=== PATIENT | male | born 1945 | race Caucasian/White ===

== ENCOUNTER 2018-02-28 21:56 | Inpatient (IN) | payer MEDICAID ==
[~2018-02-28] VITALS: Ht 162.6 cm; Wt 61.7 kg
[2018-02-28 23:31] LABS: UA SPECIFIC GRAVITY 1.025 (1.005-1.035); microscopic required? YES; urine erythrocyte 3+ (NEGATIVE)
[2018-02-28 23:33] LABS: BASOPHIL % 0 % (0-2); RED CELL DISTRIBUTION WIDTH 15.5 % (11.5-14.5)
[2018-02-28 23:47] LABS: PLATELET COUNT 573 x10^3mcL (130-400)
[2018-02-28 23:48] LABS: BILIRUBIN TOTAL 1.51 mg/dL (0.20-1.00); CALCIUM 7.7 mg/dL (8.5-10.1); CARBON DIOXIDE 15.6 mmol/L (21-32); POTASSIUM SERUM 4.5 mmol/L (3.5-5.1); TOTAL PROTEIN, SERUM 7.2 g/dL (6.4-8.2)
[2018-02-28 23:51] LABS: ALBUMIN 1.8 g/dL (3.4-5.0); CREATININE SERUM 8.1 mg/dL (0.7-1.3)
[2018-03-01 01:20] LABS: MAGNESIUM 2.7 mg/dL (1.8-2.4)
[2018-03-01 01:23] VITALS: BP 119/60
[2018-03-01 01:39] LABS: CHOLESTEROL/HDL RATIO 9.9; PHOSPHOROUS 9.2 mg/dL (2.5-4.9)
[2018-03-01 04:59] VITALS: BP 148/68
[2018-03-01 05:47] LABS: AMPHETAMINE QUAL UR NONE DETECTED (See below)
[2018-03-01 08:00] LABS: CALCIUM 7.4 mg/dL (8.5-10.1); CARBON DIOXIDE 15.2 mmol/L (21-32); MAGNESIUM 2.5 mg/dL (1.8-2.4); PHOSPHOROUS 8.8 mg/dL (2.5-4.9); POTASSIUM SERUM 4.9 mmol/L (3.5-5.1)
[2018-03-01 08:03] LABS: CREATININE SERUM 7.7 mg/dL (0.7-1.3)
[2018-03-01 08:15] LABS: PLATELET COUNT 594 x10^3mcL (130-400); RED CELL DISTRIBUTION WIDTH 15.3 % (11.5-14.5)
[2018-03-01 09:05] VITALS: BP 101/50
[2018-03-01 10:32] VITALS: Ht 162.6 cm; Wt 61.7 kg
[2018-03-01 11:35] LABS: BAND NEUTROPHIL 6 % (0-10); BASOPHIL 0 % (0-2); METAMYELOCTE 1 % (0-2); MONOCYTE 3 % (0-7); SEGMENTED NEUTROPHILS 85 % (37-75)
[2018-03-01 11:38] LABS: PLATELET MORPHOLOGY PLATELETS INCREASED; rbc morphology (normal/abnorm) ABNORMAL (NORMAL); target cell (codocyte) 1+
[2018-03-01 11:39] LABS: ovalocyte/elliptocyte 1+
[2018-03-01 13:45] VITALS: BP 132/73
[2018-03-01 14:54] LABS: CARBON DIOXIDE 12.9 mmol/L (21-32); POTASSIUM SERUM 5.3 mmol/L (3.5-5.1)
[2018-03-01 15:05] LABS: CREATININE SERUM 7.3 mg/dL (0.7-1.3)
[2018-03-01 17:13] VITALS: BP 122/74
[2018-03-01 19:00] LABS: CALCIUM 8.3 mg/dL (8.5-10.1); CARBON DIOXIDE 11.4 mmol/L (21-32); POTASSIUM SERUM 4.6 mmol/L (3.5-5.1)
[2018-03-01 19:06] LABS: CREATININE SERUM 7.3 mg/dL (0.7-1.3)
[2018-03-01 21:34] VITALS: BP 105/61
[2018-03-02 05:51] VITALS: BP 110/67
[2018-03-02 07:06] LABS: PLATELET COUNT 541 x10^3mcL (130-400)
[2018-03-02 07:08] LABS: CALCIUM 7.9 mg/dL (8.5-10.1); CARBON DIOXIDE 12.6 mmol/L (21-32); MAGNESIUM 2.4 mg/dL (1.8-2.4); POTASSIUM SERUM 4.9 mmol/L (3.5-5.1)
[2018-03-02 07:37] LABS: CREATININE SERUM 7.3 mg/dL (0.7-1.3)
[2018-03-02 08:31] VITALS: BP 142/72
[2018-03-02 09:02] LABS: PHOSPHOROUS 9.4 mg/dL (2.5-4.9)
[2018-03-02 10:17] LABS: BAND NEUTROPHIL 0 % (0-10); BASOPHIL 0 % (0-2); MONOCYTE 4 % (0-7); PLATELET MORPHOLOGY PLATELETS INCREASED; SEGMENTED NEUTROPHILS 90 % (37-75); ovalocyte/elliptocyte 1+; rbc morphology (normal/abnorm) ABNORMAL (NORMAL); target cell (codocyte) 1+
[2018-03-02 13:24] VITALS: BP 136/79
[2018-03-02 16:53] LABS: CARBON DIOXIDE 14.2 mmol/L (21-32); POTASSIUM SERUM 5.2 mmol/L (3.5-5.1)
[2018-03-02 16:55] LABS: CREATININE SERUM 7.2 mg/dL (0.7-1.3)
[2018-03-02 17:15] VITALS: BP 130/79
[2018-03-02 20:02] VITALS: BP 122/72
[2018-03-03] VITALS (7 sets, daily range): BP systolic 118–156; BP diastolic 67–87
[2018-03-03 07:02] LABS: CALCIUM 7.7 mg/dL (8.5-10.1); CARBON DIOXIDE 12.4 mmol/L (21-32); MAGNESIUM 2.3 mg/dL (1.8-2.4); PHOSPHOROUS 7.4 mg/dL (2.5-4.9); POTASSIUM SERUM 4.7 mmol/L (3.5-5.1)
[2018-03-03 07:06] LABS: CREATININE SERUM 7.1 mg/dL (0.7-1.3)
[2018-03-03 07:23] LABS: BASOPHIL % 0 % (0-2); RED CELL DISTRIBUTION WIDTH 14.8 % (11.5-14.5)
[2018-03-03 09:18] LABS: PLATELET COUNT 558 x10^3mcL (130-400)
[2018-03-04 04:46] VITALS: BP 112/72
[2018-03-04 07:30] LABS: PLATELET COUNT 393 x10^3mcL (130-400)
[2018-03-04 07:31] LABS: RED CELL DISTRIBUTION WIDTH 15.2 % (11.5-14.5)
[2018-03-04 07:42] LABS: CALCIUM 7.6 mg/dL (8.5-10.1); CARBON DIOXIDE 24.2 mmol/L (21-32); PHOSPHOROUS 6.3 mg/dL (2.5-4.9)
[2018-03-04 07:46] LABS: CREATININE SERUM 5.3 mg/dL (0.7-1.3)
[2018-03-04 08:10] VITALS: BP 101/65
[2018-03-04 11:12] LABS: BAND NEUTROPHIL 0 % (0-10); BASOPHIL 0 % (0-2); MONOCYTE 5 % (0-7); SEGMENTED NEUTROPHILS 88 % (37-75)
[2018-03-04 11:13] LABS: rbc morphology (normal/abnorm) ABNORMAL (NORMAL)
[2018-03-04 11:14] LABS: ovalocyte/elliptocyte 1+; target cell (codocyte) 1+
[2018-03-04 12:12] VITALS: BP 125/69
[2018-03-04 17:15] VITALS: BP 128/72
[2018-03-04 20:59] VITALS: BP 117/64
[2018-03-05 05:13] VITALS: BP 109/64
[2018-03-05 07:44] LABS: CALCIUM 7.5 mg/dL (8.5-10.1); CARBON DIOXIDE 26.8 mmol/L (21-32); MAGNESIUM 1.8 mg/dL (1.8-2.4); PHOSPHOROUS 4.1 mg/dL (2.5-4.9); POTASSIUM SERUM 3.9 mmol/L (3.5-5.1)
[2018-03-05 07:55] LABS: CREATININE SERUM 4.2 mg/dL (0.7-1.3)
[2018-03-05 08:12] LABS: PLATELET COUNT 362 x10^3mcL (130-400)
[2018-03-05 08:18] LABS: RED CELL DISTRIBUTION WIDTH 15.3 % (11.5-14.5)
[2018-03-05 09:22] VITALS: BP 145/97
[2018-03-05 11:00] LABS: BAND NEUTROPHIL 3 % (0-10); BASOPHIL 0 % (0-2); MONOCYTE 1 % (0-7); SEGMENTED NEUTROPHILS 95 % (37-75)
[2018-03-05 11:01] LABS: rbc morphology (normal/abnorm) ABNORMAL (NORMAL); schistocyte (helmet cell) 2+
[2018-03-05 11:02] LABS: PLATELET MORPHOLOGY PLATELETS NORMAL
[2018-03-05 12:58] VITALS: BP 122/70
[2018-03-05 17:12] VITALS: BP 124/76
[2018-03-05 21:02] VITALS: BP 120/71
[2018-03-06 05:47] VITALS: BP 136/76
[2018-03-06 06:49] LABS: PLATELET COUNT 380 x10^3mcL (130-400)
[2018-03-06 07:23] LABS: RED CELL DISTRIBUTION WIDTH 15.6 % (11.5-14.5)
[2018-03-06 07:39] LABS: CALCIUM 7.5 mg/dL (8.5-10.1); CARBON DIOXIDE 29.3 mmol/L (21-32); CREATININE SERUM 3.9 mg/dL (0.7-1.3); MAGNESIUM 1.6 mg/dL (1.8-2.4); PHOSPHOROUS 3.8 mg/dL (2.5-4.9); POTASSIUM SERUM 3.9 mmol/L (3.5-5.1)
[2018-03-06 08:29] VITALS: BP 124/77
[2018-03-06 11:36] LABS: BAND NEUTROPHIL 3 % (0-10); BASOPHIL 0 % (0-2); MONOCYTE 1 % (0-7); SEGMENTED NEUTROPHILS 96 % (37-75)
[2018-03-06 11:37] LABS: rbc morphology (normal/abnorm) ABNORMAL (NORMAL)
[2018-03-06 11:38] LABS: PLATELET MORPHOLOGY PLATELETS NORMAL
[2018-03-06 12:06] VITALS: BP 138/79
[2018-03-06 16:36] VITALS: BP 145/81
[2018-03-06 19:56] VITALS: BP 109/64
[2018-03-07 04:26] VITALS: BP 136/74
[2018-03-07 05:58] LABS: PLATELET COUNT 361 x10^3mcL (130-400)
[2018-03-07 06:32] LABS: CALCIUM 7.8 mg/dL (8.5-10.1); CARBON DIOXIDE 27.6 mmol/L (21-32); MAGNESIUM 1.7 mg/dL (1.8-2.4); PHOSPHOROUS 4.3 mg/dL (2.5-4.9); POTASSIUM SERUM 4.3 mmol/L (3.5-5.1)
[2018-03-07 06:40] LABS: CREATININE SERUM 4.3 mg/dL (0.7-1.3)
[2018-03-07 06:52] LABS: BASOPHIL % 0 % (0-2); RED CELL DISTRIBUTION WIDTH 15.4 % (11.5-14.5)
[2018-03-07 09:56] VITALS: BP 140/77
[2018-03-07 13:19] VITALS: BP 121/63
[2018-03-07 17:30] VITALS: BP 144/76
[2018-03-07 19:43] VITALS: BP 120/71
[2018-03-08 04:35] VITALS: BP 135/77
[2018-03-08 07:23] LABS: PLATELET COUNT 321 x10^3mcL (130-400)
[2018-03-08 07:29] LABS: RED CELL DISTRIBUTION WIDTH 15.4 % (11.5-14.5)
[2018-03-08 07:52] LABS: CALCIUM 7.5 mg/dL (8.5-10.1); CARBON DIOXIDE 28.9 mmol/L (21-32); CREATININE SERUM 2.5 mg/dL (0.7-1.3); MAGNESIUM 1.4 mg/dL (1.8-2.4); PHOSPHOROUS 3.3 mg/dL (2.5-4.9); POTASSIUM SERUM 3.5 mmol/L (3.5-5.1)
[2018-03-08 09:51] VITALS: BP 123/59
[2018-03-08 13:56] LABS: BAND NEUTROPHIL 9 % (0-10); BASOPHIL 0 % (0-2); MONOCYTE 3 % (0-7); SEGMENTED NEUTROPHILS 79 % (37-75)
[2018-03-08 13:58] LABS: PLATELET MORPHOLOGY PLATELETS NORMAL; rbc morphology (normal/abnorm) ABNORMAL (NORMAL); target cell (codocyte) 1+; tear drop cell (dacryocyte) 1+
[2018-03-08 14:20] VITALS: BP 142/80
[2018-03-08 16:58] VITALS: BP 134/77
[2018-03-08 21:23] VITALS: BP 114/72
[2018-03-09 05:51] VITALS: BP 125/75
[2018-03-09 06:55] LABS: BASOPHIL % 0.5 % (0-2); PLATELET COUNT 341 x10^3mcL (130-400)
[2018-03-09 07:06] LABS: CALCIUM 7.6 mg/dL (8.5-10.1); CARBON DIOXIDE 29.3 mmol/L (21-32); CREATININE SERUM 3.6 mg/dL (0.7-1.3); MAGNESIUM 1.7 mg/dL (1.8-2.4); PHOSPHOROUS 3.5 mg/dL (2.5-4.9); POTASSIUM SERUM 3.6 mmol/L (3.5-5.1)
[2018-03-09 10:25] VITALS: BP 119/65
[2018-03-09 13:11] VITALS: BP 136/70
[2018-03-09 18:53] VITALS: BP 120/73
[2018-03-09 21:20] VITALS: BP 118/69
[2018-03-10 05:27] VITALS: BP 129/75
[2018-03-10 07:17] LABS: CALCIUM 7.6 mg/dL (8.5-10.1); CARBON DIOXIDE 28.1 mmol/L (21-32); MAGNESIUM 1.8 mg/dL (1.8-2.4); PHOSPHOROUS 3.5 mg/dL (2.5-4.9); POTASSIUM SERUM 3.8 mmol/L (3.5-5.1)
[2018-03-10 07:38] LABS: BASOPHIL % 0.4 % (0-2); PLATELET COUNT 361 x10^3mcL (130-400)
[2018-03-10 07:40] LABS: RED CELL DISTRIBUTION WIDTH 16.4 % (11.5-14.5)
[2018-03-10 07:41] LABS: CREATININE SERUM 4.1 mg/dL (0.7-1.3)
[2018-03-10 08:13] VITALS: BP 125/68
[2018-03-10 12:18] VITALS: BP 117/84
[2018-03-10 16:07] VITALS: BP 110/78
[2018-03-10 21:26] VITALS: BP 124/83
[2018-03-11 06:03] VITALS: BP 118/80
[2018-03-11 06:28] LABS: CALCIUM 7.6 mg/dL (8.5-10.1); CARBON DIOXIDE 29.5 mmol/L (21-32); MAGNESIUM 1.8 mg/dL (1.8-2.4); PHOSPHOROUS 3.5 mg/dL (2.5-4.9)
[2018-03-11 06:31] LABS: BASOPHIL % 0.5 % (0-2); CREATININE SERUM 4.2 mg/dL (0.7-1.3); PLATELET COUNT 369 x10^3mcL (130-400)
[2018-03-11 07:20] LABS: RED CELL DISTRIBUTION WIDTH 16.3 % (11.5-14.5)
[2018-03-11 08:03] VITALS: BP 128/79; BP 143/90
[2018-03-11 13:04] VITALS: BP 108/56
[2018-03-11 13:10] VITALS: BP 142/77
[2018-03-11 16:26] VITALS: BP 127/61
[2018-03-11 19:46] VITALS: BP 133/77
[2018-03-12 06:12] VITALS: BP 137/76
[2018-03-12 06:22] LABS: BASOPHIL % 0.4 % (0-2); PLATELET COUNT 370 x10^3mcL (130-400)
[2018-03-12 06:57] LABS: CALCIUM 7.7 mg/dL (8.5-10.1); CARBON DIOXIDE 31.5 mmol/L (21-32); MAGNESIUM 1.7 mg/dL (1.8-2.4); PHOSPHOROUS 2.6 mg/dL (2.5-4.9)
[2018-03-12 07:26] LABS: IRON 22 ug/dL (65-170); TOTAL IRON BINDING CAPACITY 85 ug/dL (250-450)
[2018-03-12 07:32] LABS: RED CELL DISTRIBUTION WIDTH 17.3 % (11.5-14.5)
[2018-03-12 10:24] VITALS: BP 114/54
[2018-03-12 16:29] VITALS: BP 118/77
[2018-03-12 21:36] VITALS: BP 119/76
[2018-03-13 05:55] VITALS: BP 134/72
[2018-03-13 06:55] LABS: BASOPHIL % 0.6 % (0-2); PLATELET COUNT 388 x10^3mcL (130-400); RED CELL DISTRIBUTION WIDTH 17.9 % (11.5-14.5)
[2018-03-13 06:57] LABS: CALCIUM 7.9 mg/dL (8.5-10.1); CARBON DIOXIDE 28.2 mmol/L (21-32); CREATININE SERUM 3.5 mg/dL (0.7-1.3); MAGNESIUM 1.7 mg/dL (1.8-2.4); PHOSPHOROUS 2.7 mg/dL (2.5-4.9)
[2018-03-13 08:20] VITALS: BP 130/75
[2018-03-13 13:15] VITALS: BP 127/72
[2018-03-13 17:15] VITALS: BP 109/72
[2018-03-13 20:43] VITALS: BP 121/70
[2018-03-14 05:20] VITALS: BP 143/77
[2018-03-14 06:43] LABS: CALCIUM 7.4 mg/dL (8.5-10.1); CARBON DIOXIDE 29.6 mmol/L (21-32); CREATININE SERUM 3.7 mg/dL (0.7-1.3); MAGNESIUM 2.3 mg/dL (1.8-2.4); PHOSPHOROUS 2.8 mg/dL (2.5-4.9); POTASSIUM SERUM 3.7 mmol/L (3.5-5.1)
[2018-03-14 09:12] VITALS: BP 116/69
[2018-03-14 11:58] VITALS: BP 118/70
[2018-03-14 12:56] LABS: BASOPHIL % 0.8 % (0-2)
[2018-03-14 12:57] LABS: PLATELET COUNT 558 x10^3mcL (130-400); RED CELL DISTRIBUTION WIDTH 18.9 % (11.5-14.5)
[2018-03-14 16:29] VITALS: BP 144/79
[2018-03-14 20:49] VITALS: BP 101/64
[2018-03-15 04:43] VITALS: BP 112/71
[2018-03-15 09:00] VITALS: BP 114/66
[2018-03-15 12:54] LABS: BASOPHIL % 0.5 % (0-2)
[2018-03-15 12:55] LABS: CALCIUM 7.6 mg/dL (8.5-10.1); CARBON DIOXIDE 29.7 mmol/L (21-32); CREATININE SERUM 3.1 mg/dL (0.7-1.3); MAGNESIUM 1.9 mg/dL (1.8-2.4); PHOSPHOROUS 2.6 mg/dL (2.5-4.9); PLATELET COUNT 439 x10^3mcL (130-400); POTASSIUM SERUM 3.6 mmol/L (3.5-5.1); RED CELL DISTRIBUTION WIDTH 17.9 % (11.5-14.5)
[2018-03-15 13:00] VITALS: BP 131/65
[2018-03-15 16:53] VITALS: BP 136/76
[2018-03-15 22:53] VITALS: BP 107/65
[2018-03-16 06:01] VITALS: BP 103/67
[2018-03-16 06:04] LABS: BASOPHIL % 0.4 % (0-2); PLATELET COUNT 386 x10^3mcL (130-400)
[2018-03-16 06:10] LABS: CALCIUM 7.4 mg/dL (8.5-10.1); CARBON DIOXIDE 27.1 mmol/L (21-32); CREATININE SERUM 3.3 mg/dL (0.7-1.3); MAGNESIUM 1.8 mg/dL (1.8-2.4); PHOSPHOROUS 2.5 mg/dL (2.5-4.9); POTASSIUM SERUM 3.6 mmol/L (3.5-5.1)
[2018-03-16 06:33] LABS: RED CELL DISTRIBUTION WIDTH 18.9 % (11.5-14.5)
[2018-03-16 08:05] VITALS: BP 132/96
[2018-03-16 12:53] VITALS: BP 110/70
[2018-03-16 16:30] VITALS: BP 142/64
[2018-03-16 18:21] VITALS: BP 108/52
[2018-03-16 21:05] VITALS: BP 108/77
[2018-03-17 05:53] VITALS: BP 109/68
[2018-03-17 06:45] LABS: CALCIUM 7.6 mg/dL (8.5-10.1); CARBON DIOXIDE 29.3 mmol/L (21-32); CREATININE SERUM 2.5 mg/dL (0.7-1.3); MAGNESIUM 1.6 mg/dL (1.8-2.4); PHOSPHOROUS 2.8 mg/dL (2.5-4.9); POTASSIUM SERUM 3.8 mmol/L (3.5-5.1)
[2018-03-17 08:00] LABS: BASOPHIL % 0.7 % (0-2); PLATELET COUNT 330 x10^3mcL (130-400)
[2018-03-17 08:01] LABS: rbc morphology (normal/abnorm) ABNORMAL (NORMAL)
[2018-03-17 09:50] VITALS: BP 102/56
[2018-03-17 13:19] VITALS: BP 126/70
[2018-03-17 17:00] VITALS: BP 137/76
[2018-03-17 21:13] VITALS: BP 117/69
[2018-03-18 04:58] VITALS: BP 131/72
[2018-03-18 06:55] LABS: CALCIUM 7.5 mg/dL (8.5-10.1); CARBON DIOXIDE 25.5 mmol/L (21-32); CREATININE SERUM 3.1 mg/dL (0.7-1.3); MAGNESIUM 1.6 mg/dL (1.8-2.4); PHOSPHOROUS 2.9 mg/dL (2.5-4.9); POTASSIUM SERUM 3.7 mmol/L (3.5-5.1)
[2018-03-18 07:08] LABS: BASOPHIL % 0.6 % (0-2); PLATELET COUNT 338 x10^3mcL (130-400)
[2018-03-18 07:21] LABS: RED CELL DISTRIBUTION WIDTH 20.6 % (11.5-14.5)
[2018-03-18 13:04] VITALS: BP 126/68
[2018-03-18 17:52] VITALS: BP 116/68
[2018-03-18 20:57] VITALS: BP 117/57
[2018-03-19 05:19] VITALS: BP 128/75
[2018-03-19 09:08] VITALS: BP 121/74
[2018-03-19 11:19] LABS: BASOPHIL % 0.5 % (0-2); PLATELET COUNT 278 x10^3mcL (130-400); RED CELL DISTRIBUTION WIDTH 21.8 % (11.5-14.5)
[2018-03-19 11:22] LABS: CALCIUM 7.6 mg/dL (8.5-10.1); CARBON DIOXIDE 25.8 mmol/L (21-32); CREATININE SERUM 2.7 mg/dL (0.7-1.3); MAGNESIUM 1.8 mg/dL (1.8-2.4); POTASSIUM SERUM 3.6 mmol/L (3.5-5.1)
[2018-03-19 12:22] LABS: acanthocyte (spur cell) 1+; rbc morphology (normal/abnorm) ABNORMAL (NORMAL)
[2018-03-19 14:24] VITALS: BP 116/73
[2018-03-19 16:45] VITALS: BP 122/79
[2018-03-19 21:03] VITALS: BP 126/68
[2018-03-20 04:43] VITALS: BP 129/74
[2018-03-20 06:20] LABS: BASOPHIL % 0.5 % (0-2); PLATELET COUNT 281 x10^3mcL (130-400)
[2018-03-20 06:36] LABS: CALCIUM 7.8 mg/dL (8.5-10.1); CARBON DIOXIDE 26.9 mmol/L (21-32); CREATININE SERUM 3.1 mg/dL (0.7-1.3); MAGNESIUM 1.8 mg/dL (1.8-2.4); PHOSPHOROUS 3.6 mg/dL (2.5-4.9); POTASSIUM SERUM 3.6 mmol/L (3.5-5.1)
[2018-03-20 06:58] LABS: RED CELL DISTRIBUTION WIDTH 23.1 % (11.5-14.5)
[2018-03-20 09:19] VITALS: BP 125/67
[2018-03-20 12:36] VITALS: BP 130/73
[2018-03-20 16:33] VITALS: BP 128/75
[2018-03-20 21:35] VITALS: BP 124/72
[2018-03-21 05:22] VITALS: BP 127/77
[2018-03-21 07:09] LABS: BASOPHIL % 0.6 % (0-2); PLATELET COUNT 241 x10^3mcL (130-400); RED CELL DISTRIBUTION WIDTH 23.4 % (11.5-14.5)
[2018-03-21 07:29] LABS: CALCIUM 7.8 mg/dL (8.5-10.1); CARBON DIOXIDE 23.4 mmol/L (21-32); CREATININE SERUM 3.3 mg/dL (0.7-1.3); PHOSPHOROUS 3.9 mg/dL (2.5-4.9); POTASSIUM SERUM 3.6 mmol/L (3.5-5.1)
[2018-03-21 09:08] VITALS: BP 106/66
[2018-03-21 12:16] VITALS: BP 103/76
[2018-03-21 16:52] VITALS: BP 130/76
[2018-03-21 21:00] VITALS: BP 114/79
[2018-03-22 05:27] VITALS: BP 100/57
[2018-03-22 08:00] VITALS: BP 101/66
[2018-03-22 12:09] LABS: BASOPHIL % 0.5 % (0-2); PLATELET COUNT 206 x10^3mcL (130-400)
[2018-03-22 12:10] LABS: RED CELL DISTRIBUTION WIDTH 23.4 % (11.5-14.5)
[2018-03-22 12:15] VITALS: BP 121/66
[2018-03-22 12:38] LABS: CALCIUM 8.1 mg/dL (8.5-10.1); CREATININE SERUM 2.8 mg/dL (0.7-1.3); POTASSIUM SERUM 3.8 mmol/L (3.5-5.1)
[2018-03-22 16:45] VITALS: BP 121/69
[2018-03-22 21:01] VITALS: BP 109/71
[2018-03-23 04:27] VITALS: BP 149/80
[2018-03-23 06:24] LABS: CARBON DIOXIDE 23.1 mmol/L (21-32); CREATININE SERUM 3.2 mg/dL (0.7-1.3); POTASSIUM SERUM 3.5 mmol/L (3.5-5.1)
[2018-03-23 10:02] VITALS: BP 93/60
[2018-03-23 13:53] VITALS: BP 99/60
[2018-03-23 17:39] VITALS: BP 92/60
[2018-03-23 20:13] VITALS: BP 106/65
[2018-03-24 05:41] VITALS: BP 102/57
[2018-03-24 06:19] LABS: BASOPHIL % 0.8 % (0-2); PLATELET COUNT 204 x10^3mcL (130-400)
[2018-03-24 06:36] LABS: CALCIUM 8.2 mg/dL (8.5-10.1); CARBON DIOXIDE 27.1 mmol/L (21-32); CREATININE SERUM 2.8 mg/dL (0.7-1.3); MAGNESIUM 1.9 mg/dL (1.8-2.4); PHOSPHOROUS 3.2 mg/dL (2.5-4.9); POTASSIUM SERUM 3.5 mmol/L (3.5-5.1)
[2018-03-24 06:48] LABS: RED CELL DISTRIBUTION WIDTH 23.7 % (11.5-14.5); rbc morphology (normal/abnorm) ABNORMAL (NORMAL)
[2018-03-24 08:19] VITALS: BP 103/60
[2018-03-24 11:57] VITALS: BP 120/75
[2018-03-24 17:00] VITALS: BP 97/73
[2018-03-24 21:25] VITALS: BP 114/74
[2018-03-25 05:23] VITALS: BP 116/70
[2018-03-25 07:17] LABS: CALCIUM 8.3 mg/dL (8.5-10.1); CREATININE SERUM 3.2 mg/dL (0.7-1.3); POTASSIUM SERUM 3.8 mmol/L (3.5-5.1)
[2018-03-25 07:31] LABS: BASOPHIL % 0.7 % (0-2); PLATELET COUNT 200 x10^3mcL (130-400)
[2018-03-25 07:33] LABS: RED CELL DISTRIBUTION WIDTH 23.9 % (11.5-14.5)
[2018-03-25 10:52] VITALS: BP 105/72
[2018-03-25 13:26] VITALS: BP 98/61
[2018-03-25 18:55] VITALS: BP 128/84
[2018-03-25 21:02] VITALS: BP 102/62
[2018-03-26 06:09] LABS: CALCIUM 8.4 mg/dL (8.5-10.1); CARBON DIOXIDE 24.7 mmol/L (21-32); CREATININE SERUM 3.1 mg/dL (0.7-1.3); POTASSIUM SERUM 3.4 mmol/L (3.5-5.1)
[2018-03-26 06:17] VITALS: BP 106/65
[2018-03-26 06:42] LABS: BASOPHIL % 0.7 % (0-2); PLATELET COUNT 156 x10^3mcL (130-400)
[2018-03-26 06:53] LABS: RED CELL DISTRIBUTION WIDTH 24.2 % (11.5-14.5); rbc morphology (normal/abnorm) ABNORMAL (NORMAL)
[2018-03-26 08:13] VITALS: BP 108/70
[2018-03-26 12:31] VITALS: BP 113/64
[2018-03-26 16:42] VITALS: BP 103/64
[2018-03-26 21:18] VITALS: BP 97/62
[2018-03-27 05:50] VITALS: BP 103/61
[2018-03-27 06:37] LABS: BASOPHIL % 0.7 % (0-2); PLATELET COUNT 169 x10^3mcL (130-400)
[2018-03-27 06:38] LABS: CALCIUM 8.6 mg/dL (8.5-10.1); CARBON DIOXIDE 24.7 mmol/L (21-32); CREATININE SERUM 3.9 mg/dL (0.7-1.3); POTASSIUM SERUM 4.2 mmol/L (3.5-5.1)
[2018-03-27 07:06] LABS: RED CELL DISTRIBUTION WIDTH 24.2 % (11.5-14.5); rbc morphology (normal/abnorm) ABNORMAL (NORMAL)
[2018-03-27 09:27] VITALS: BP 97/65
[2018-03-27 17:35] VITALS: BP 126/73
[2018-03-27 20:48] VITALS: BP 118/69
[2018-03-28 05:03] VITALS: BP 121/76
[2018-03-28 06:08] LABS: BASOPHIL % 0.6 % (0-2); PLATELET COUNT 170 x10^3mcL (130-400)
[2018-03-28 06:40] LABS: CALCIUM 8.6 mg/dL (8.5-10.1); CARBON DIOXIDE 23.1 mmol/L (21-32); MAGNESIUM 2.2 mg/dL (1.8-2.4); PHOSPHOROUS 4.9 mg/dL (2.5-4.9); POTASSIUM SERUM 4.3 mmol/L (3.5-5.1)
[2018-03-28 07:04] LABS: RED CELL DISTRIBUTION WIDTH 24.4 % (11.5-14.5)
[2018-03-28 07:11] LABS: CREATININE SERUM 4.1 mg/dL (0.7-1.3)
[2018-03-28 09:30] VITALS: BP 102/63
[2018-03-28 17:11] VITALS: BP 94/65
[2018-03-28 20:57] VITALS: BP 101/60
[2018-03-29 06:00] VITALS: BP 102/60
[2018-03-29 06:34] LABS: CALCIUM 8.6 mg/dL (8.5-10.1); CARBON DIOXIDE 26.6 mmol/L (21-32); CREATININE SERUM 3.5 mg/dL (0.7-1.3); MAGNESIUM 2.1 mg/dL (1.8-2.4); PHOSPHOROUS 4.7 mg/dL (2.5-4.9); POTASSIUM SERUM 4.3 mmol/L (3.5-5.1)
[2018-03-29 07:29] LABS: BASOPHIL % 0.6 % (0-2); PLATELET COUNT 143 x10^3mcL (130-400); RED CELL DISTRIBUTION WIDTH 24.9 % (11.5-14.5)
[2018-03-29 10:17] VITALS: BP 95/62
[2018-03-29 12:41] LABS: BASOPHIL % 0.7 % (0-2); PLATELET COUNT 147 x10^3mcL (130-400)
[2018-03-29 12:42] LABS: RED CELL DISTRIBUTION WIDTH 24.6 % (11.5-14.5)
[2018-03-29 12:57] LABS: rbc morphology (normal/abnorm) ABNORMAL (NORMAL)
[2018-03-29 16:41] VITALS: BP 90/59
[2018-03-29 20:34] VITALS: BP 109/66
[2018-03-30 05:27] VITALS: BP 106/66
[2018-03-30 06:13] LABS: BASOPHIL % 0.4 % (0-2); PLATELET COUNT 150 x10^3mcL (130-400)
[2018-03-30 06:58] LABS: CALCIUM 8.7 mg/dL (8.5-10.1); CARBON DIOXIDE 23.5 mmol/L (21-32); MAGNESIUM 2.1 mg/dL (1.8-2.4); PHOSPHOROUS 4.8 mg/dL (2.5-4.9); POTASSIUM SERUM 4.4 mmol/L (3.5-5.1)
[2018-03-30 07:06] LABS: CREATININE SERUM 4.1 mg/dL (0.7-1.3)
[2018-03-30 07:20] LABS: RED CELL DISTRIBUTION WIDTH 24.8 % (11.5-14.5)
[2018-03-30 08:32] LABS: rbc morphology (normal/abnorm) ABNORMAL (NORMAL)
[2018-03-30 08:33] LABS: burr cell (echinocyte) 1+
[2018-03-30 10:23] VITALS: BP 111/59
[2018-03-30 17:48] VITALS: BP 119/68
[2018-03-30 20:43] VITALS: BP 110/67
[2018-03-31 05:13] VITALS: BP 117/74
[2018-03-31 06:41] LABS: CALCIUM 7.9 mg/dL (8.5-10.1); CARBON DIOXIDE 30.5 mmol/L (21-32); CREATININE SERUM 2.8 mg/dL (0.7-1.3); MAGNESIUM 1.8 mg/dL (1.8-2.4); PHOSPHOROUS 3.2 mg/dL (2.5-4.9); POTASSIUM SERUM 4.2 mmol/L (3.5-5.1)
[2018-03-31 07:39] LABS: BASOPHIL % 0.8 % (0-2); PLATELET COUNT 134 x10^3mcL (130-400)
[2018-03-31 08:30] VITALS: BP 102/81
[2018-03-31 11:46] LABS: rbc morphology (normal/abnorm) ABNORMAL (NORMAL)
[2018-03-31 17:49] VITALS: BP 121/80
[2018-03-31 21:11] VITALS: BP 123/73
[2018-04-01 04:25] VITALS: BP 117/76
[2018-04-01 07:20] LABS: BASOPHIL % 0.7 % (0-2); PLATELET COUNT 148 x10^3mcL (130-400)
[2018-04-01 07:33] LABS: CALCIUM 8.4 mg/dL (8.5-10.1); CARBON DIOXIDE 26.7 mmol/L (21-32); CREATININE SERUM 3.4 mg/dL (0.7-1.3); POTASSIUM SERUM 4.2 mmol/L (3.5-5.1)
[2018-04-01 07:45] LABS: RED CELL DISTRIBUTION WIDTH 24.7 % (11.5-14.5)
[2018-04-01 08:35] VITALS: BP 117/71
[2018-04-01 12:31] LABS: rbc morphology (normal/abnorm) ABNORMAL (NORMAL)
[2018-04-01 15:40] VITALS: BP 92/60
[2018-04-01 19:37] VITALS: BP 95/61
[2018-04-02] VITALS (7 sets, daily range): BP systolic 97–111; BP diastolic 58–66
[2018-04-02 05:05] LABS: BASOPHIL % 0.4 % (0-2); PLATELET COUNT 153 x10^3mcL (130-400)
[2018-04-02 05:10] LABS: RED CELL DISTRIBUTION WIDTH 22.2 % (11.5-14.5)
[2018-04-02 05:16] LABS: CALCIUM 7.8 mg/dL (8.5-10.1); CARBON DIOXIDE 28.3 mmol/L (21-32); CREATININE SERUM 3.3 mg/dL (0.7-1.3); POTASSIUM SERUM 4.5 mmol/L (3.5-5.1)
[2018-04-02 05:26] LABS: rbc morphology (normal/abnorm) ABNORMAL (NORMAL)
[2018-04-03 05:22] VITALS: BP 112/65
[2018-04-03 06:14] LABS: BASOPHIL % 0.6 % (0-2); PLATELET COUNT 163 x10^3mcL (130-400)
[2018-04-03 06:29] LABS: CALCIUM 7.9 mg/dL (8.5-10.1); CARBON DIOXIDE 25.1 mmol/L (21-32); CREATININE SERUM 3.8 mg/dL (0.7-1.3); MAGNESIUM 1.9 mg/dL (1.8-2.4); POTASSIUM SERUM 4.3 mmol/L (3.5-5.1)
[2018-04-03 06:49] LABS: RED CELL DISTRIBUTION WIDTH 22.9 % (11.5-14.5)
[2018-04-03 08:05] VITALS: BP 112/65
[2018-04-03 10:27] LABS: rbc morphology (normal/abnorm) ABNORMAL (NORMAL)
== END 2018-04-03 09:34 | disposition home or self-care (01) | DRG 720 ==
LOC: ED 21:56 → IC 03-01 00:07 → DU 03-01 00:07 → MU 03-27 11:47 → IC 04-01 16:30 → DU 04-01 17:58 → IC 04-01 17:59 → DU 04-02 15:40
PROVIDERS: Emergency Medicine; Family Medicine; General Practice; Internal Medicine; Internal Medicine Gastroenterology; Internal Medicine Nephrology
PROC: 02HV33Z Insertion of Infusion Device into Superior Vena Cava, Percutaneous Approach (ICD-10-PCS; 2018-03-03)
PROC: B548ZZA Ultrasonography of Superior Vena Cava, Guidance (ICD-10-PCS; 2018-03-03)
PROC: 5A1D70Z Performance of Urinary Filtration, Intermittent, Less than 6 Hours Per Day (ICD-10-PCS; 2018-03-03)
PROC: 5A1D70Z Performance of Urinary Filtration, Intermittent, Less than 6 Hours Per Day (ICD-10-PCS; 2018-03-04)
PROC: 5A1D70Z Performance of Urinary Filtration, Intermittent, Less than 6 Hours Per Day (ICD-10-PCS; 2018-03-05)
PROC: 02HV33Z Insertion of Infusion Device into Superior Vena Cava, Percutaneous Approach (ICD-10-PCS; 2018-03-07)
PROC: B548ZZA Ultrasonography of Superior Vena Cava, Guidance (ICD-10-PCS; 2018-03-07)
PROC: 0JH63XZ Insertion of Tunneled Vascular Access Device into Chest Subcutaneous Tissue and Fascia, Percutaneous Approach (ICD-10-PCS; 2018-03-07)
PROC: 5A1D70Z Performance of Urinary Filtration, Intermittent, Less than 6 Hours Per Day (ICD-10-PCS; 2018-03-07)
PROC: 5A1D70Z Performance of Urinary Filtration, Intermittent, Less than 6 Hours Per Day (ICD-10-PCS; 2018-03-11)
PROC: 5A1D70Z Performance of Urinary Filtration, Intermittent, Less than 6 Hours Per Day (ICD-10-PCS; 2018-03-14)
PROC: 5A1D70Z Performance of Urinary Filtration, Intermittent, Less than 6 Hours Per Day (ICD-10-PCS; 2018-03-16)
PROC: 5A1D70Z Performance of Urinary Filtration, Intermittent, Less than 6 Hours Per Day (ICD-10-PCS; 2018-03-18)
PROC: 5A1D70Z Performance of Urinary Filtration, Intermittent, Less than 6 Hours Per Day (ICD-10-PCS; 2018-03-21)
PROC: 5A1D70Z Performance of Urinary Filtration, Intermittent, Less than 6 Hours Per Day (ICD-10-PCS; 2018-03-25)
PROC: 5A1D70Z Performance of Urinary Filtration, Intermittent, Less than 6 Hours Per Day (ICD-10-PCS; 2018-03-28)
PROC: 5A1D70Z Performance of Urinary Filtration, Intermittent, Less than 6 Hours Per Day (ICD-10-PCS; 2018-03-29)
PROC: 5A1D70Z Performance of Urinary Filtration, Intermittent, Less than 6 Hours Per Day (ICD-10-PCS; 2018-03-30)
PROC: 5A1D70Z Performance of Urinary Filtration, Intermittent, Less than 6 Hours Per Day (ICD-10-PCS; 2018-04-01)
PROC: 0DB68ZX Excision of Stomach, Via Natural or Artificial Opening Endoscopic, Diagnostic (ICD-10-PCS; principal; 2018-04-02 08:30)
PROC: 0W3P8ZZ Control Bleeding in Gastrointestinal Tract, Via Natural or Artificial Opening Endoscopic (ICD-10-PCS; 2018-04-02 08:30)
DX: A41.9 Sepsis, unspecified organism (principal); N17.0 Acute kidney failure with tubular necrosis; E43 Unspecified severe protein-calorie malnutrition; A04.72 Enterocolitis due to Clostridium difficile, not specified as recurrent; K22.6 Gastro-esophageal laceration-hemorrhage syndrome; N18.6 End stage renal disease; Q61.3 Polycystic kidney, unspecified; N17.9 Acute kidney failure, unspecified; E87.1 Hypo-osmolality and hyponatremia; N39.0 Urinary tract infection, site not specified; K44.9 Diaphragmatic hernia without obstruction or gangrene; D50.9 Iron deficiency anemia, unspecified; E83.41 Hypermagnesemia; Z68.25 Body mass index [BMI] 25.0-25.9, adult; N10 Acute pyelonephritis; E83.51 Hypocalcemia; E83.39 Other disorders of phosphorus metabolism; E87.6 Hypokalemia; D63.1 Anemia in chronic kidney disease; B96.20 Unspecified Escherichia coli [E. coli] as the cause of diseases classified elsewhere
CPT/HCPCS: 43235; 82962; 86580; 87046; 87046-59; 90658; 90732; A4301; C9113; J0171; J0696; J0885-EC; J1200; J1610; J1642; J1644; J1956; J2001; J2060; J2250; J2310; J2354; J2405; J2765; J2916; J3010; J3475; J3490; J7030; J7040; J7050; Q0092; Q0163

== ENCOUNTER 2019-09-12 09:55 | Inpatient (IN) | payer OTHER ==
[~2019-09-12] VITALS: Ht 162.6 cm; Wt 72.1 kg
[2019-09-12 11:01] LABS: PLATELET COUNT 231 x10^3mcL (130-400); RED CELL DISTRIBUTION WIDTH 14.2 % (11.5-14.5)
[2019-09-12 11:19] LABS: ALKALINE PHOSPHATASE 127 U/L (46-116); ALT/SGPT 49 U/L (16-63); AST/SGOT 38 U/L (15-37); BILIRUBIN TOTAL 1.64 mg/dL (0.20-1.00); CARBON DIOXIDE 20.7 mmol/L (21-32); CHLORIDE SERUM 89 mmol/L (98-107); GLUCOSE SERUM 181 mg/dL (74-106); LIPASE 388 IU/L (73-393); MAGNESIUM 2.7 mg/dL (1.8-2.4); POTASSIUM SERUM 3.6 mmol/L (3.5-5.1); SODIUM SERUM 128 mmol/L (136-145); T4(THYROXINE) 6.5 ug/dL (4.7-13.3); TOTAL PROTEIN, SERUM 7.8 g/dL (6.4-8.2)
[2019-09-12 11:44] LABS: ALBUMIN 2.6 g/dL (3.4-5.0); CHOLESTEROL 128 mg/dL (<200); HDL CHOLESTEROL 9 mg/dL (40-60)
[2019-09-12 11:48] LABS: CREATININE SERUM 6.4 mg/dL (0.7-1.3)
[2019-09-12 12:08] LABS: microscopic required? YES; urine erythrocyte 3+ (NEGATIVE)
[2019-09-12 12:41] LABS: AMPHETAMINE QUAL UR NONE DETECTED (See below)
[2019-09-12 13:45] LABS: BAND NEUTROPHIL 4 % (0-10); BASOPHIL 0 % (0-2); MONOCYTE 4 % (0-7); SEGMENTED NEUTROPHILS 87 % (37-75)
[2019-09-12 13:46] LABS: rbc morphology (normal/abnorm) ABNORMAL (NORMAL)
[2019-09-12 13:47] LABS: PLATELET MORPHOLOGY PLATELETS NORMAL
[2019-09-12 18:40] VITALS: BP 102/66
[2019-09-12 19:19] VITALS: Ht 162.6 cm; Wt 72.1 kg
[2019-09-12 20:20] VITALS: BP 118/70
[2019-09-13 05:07] VITALS: BP 90/55
[2019-09-13 07:13] LABS: PLATELET COUNT 213 x10^3mcL (130-400)
[2019-09-13 07:25] LABS: RED CELL DISTRIBUTION WIDTH 14.6 % (11.5-14.5)
[2019-09-13 07:28] LABS: CALCIUM 7.8 mg/dL (8.5-10.1); CARBON DIOXIDE 16.2 mmol/L (21-32); CHLORIDE SERUM 97 mmol/L (98-107); GLUCOSE SERUM 152 mg/dL (74-106); POTASSIUM SERUM 3.4 mmol/L (3.5-5.1); SODIUM SERUM 133 mmol/L (136-145)
[2019-09-13 07:36] LABS: CREATININE SERUM 5.9 mg/dL (0.7-1.3)
[2019-09-13 08:18] VITALS: BP 97/61
[2019-09-13 09:55] LABS: BAND NEUTROPHIL 25 % (0-10); BASOPHIL 0 % (0-2); MONOCYTE 5 % (0-7); SEGMENTED NEUTROPHILS 66 % (37-75)
[2019-09-13 09:57] LABS: rbc morphology (normal/abnorm) ABNORMAL (NORMAL); target cell (codocyte) 1+; tear drop cell (dacryocyte) 1+
[2019-09-13 09:58] LABS: PLATELET MORPHOLOGY GIANT PLATELET SEEN
[2019-09-13 11:04] LABS: MAGNESIUM 2.6 mg/dL (1.8-2.4); PHOSPHOROUS 6.5 mg/dL (2.5-4.9)
[2019-09-13 12:06] VITALS: BP 111/63
[2019-09-13 16:28] VITALS: BP 106/66
[2019-09-13 20:10] VITALS: BP 111/57
[2019-09-14 06:59] VITALS: BP 101/61
[2019-09-14 07:18] LABS: CALCIUM 7.6 mg/dL (8.5-10.1); CARBON DIOXIDE 26.7 mmol/L (21-32); CHLORIDE SERUM 98 mmol/L (98-107); CREATININE SERUM 3.9 mg/dL (0.7-1.3); GLUCOSE SERUM 153 mg/dL (74-106); POTASSIUM SERUM 3.4 mmol/L (3.5-5.1); SODIUM SERUM 135 mmol/L (136-145)
[2019-09-14 08:34] VITALS: BP 121/68
[2019-09-14 10:30] LABS: PLATELET COUNT 195 x10^3mcL (130-400); RED CELL DISTRIBUTION WIDTH 14.4 % (11.5-14.5)
[2019-09-14 13:18] VITALS: BP 122/74
[2019-09-14 14:23] LABS: ATYPICAL LYMPH 5 %; BAND NEUTROPHIL 2 % (0-10); BASOPHIL 0 % (0-2); MONOCYTE 4 % (0-7); PLATELET MORPHOLOGY PLATELETS NORMAL; SEGMENTED NEUTROPHILS 63 % (37-75); rbc morphology (normal/abnorm) ABNORMAL (NORMAL)
[2019-09-14 16:29] VITALS: BP 126/51
[2019-09-14 20:55] VITALS: BP 105/62
[2019-09-15 05:50] VITALS: BP 105/60
[2019-09-15 07:48] LABS: PLATELET COUNT 224 x10^3mcL (130-400)
[2019-09-15 08:00] VITALS: BP 126/72
[2019-09-15 08:07] LABS: CALCIUM 7.9 mg/dL (8.5-10.1); CARBON DIOXIDE 24.5 mmol/L (21-32); CHLORIDE SERUM 95 mmol/L (98-107); GLUCOSE SERUM 142 mg/dL (74-106); POTASSIUM SERUM 3.7 mmol/L (3.5-5.1); SODIUM SERUM 130 mmol/L (136-145)
[2019-09-15 08:14] LABS: CREATININE SERUM 4.7 mg/dL (0.7-1.3)
[2019-09-15 12:21] VITALS: BP 113/61
[2019-09-15 13:58] LABS: MONOCYTE 2 % (0-7); SEGMENTED NEUTROPHILS 94 % (37-75)
[2019-09-15 13:59] LABS: BAND NEUTROPHIL 1 % (0-10)
[2019-09-15 15:25] LABS: rbc morphology (normal/abnorm) NORMAL (NORMAL)
[2019-09-15 17:58] VITALS: BP 109/65
[2019-09-15 20:15] VITALS: BP 105/56
[2019-09-16 06:15] VITALS: BP 141/59
[2019-09-16 07:29] LABS: PLATELET COUNT 240 x10^3mcL (130-400)
[2019-09-16 07:30] LABS: CALCIUM 7.2 mg/dL (8.5-10.1); CARBON DIOXIDE 20.3 mmol/L (21-32); CHLORIDE SERUM 95 mmol/L (98-107); GLUCOSE SERUM 145 mg/dL (74-106); POTASSIUM SERUM 3.6 mmol/L (3.5-5.1); SODIUM SERUM 133 mmol/L (136-145)
[2019-09-16 07:32] LABS: CREATININE SERUM 5.3 mg/dL (0.7-1.3)
[2019-09-16 08:36] VITALS: BP 103/64
[2019-09-16 08:54] LABS: RED CELL DISTRIBUTION WIDTH 14.9 % (11.5-14.5)
[2019-09-16 12:44] VITALS: BP 108/60
[2019-09-16 12:50] LABS: BAND NEUTROPHIL 2 % (0-10); BASOPHIL 0 % (0-2); SEGMENTED NEUTROPHILS 94 % (37-75); rbc morphology (normal/abnorm) ABNORMAL (NORMAL)
[2019-09-16 16:58] VITALS: BP 108/68
[2019-09-16 21:58] VITALS: BP 114/65
[2019-09-17 05:45] VITALS: BP 122/67
[2019-09-17 09:10] VITALS: BP 134/66
[2019-09-17 13:20] VITALS: BP 143/66
[2019-09-17 18:17] VITALS: BP 126/70
[2019-09-17 20:29] VITALS: BP 121/71
[2019-09-18 05:18] VITALS: BP 107/67
[2019-09-18 08:21] VITALS: BP 110/56
[2019-09-18 12:52] LABS: BASOPHIL % 0.2 % (0-2); PLATELET COUNT 275 x10^3mcL (130-400); RED CELL DISTRIBUTION WIDTH 13.9 % (11.5-14.5)
[2019-09-18 13:01] LABS: ALKALINE PHOSPHATASE 95 U/L (46-116); ALT/SGPT 26 U/L (16-63); AST/SGOT 27 U/L (15-37); BILIRUBIN TOTAL 1.7 mg/dL (0.20-1.00); CALCIUM 7.4 mg/dL (8.5-10.1); CHLORIDE SERUM 100 mmol/L (98-107); GLUCOSE SERUM 165 mg/dL (74-106); POTASSIUM SERUM 3.7 mmol/L (3.5-5.1); SODIUM SERUM 135 mmol/L (136-145); TOTAL PROTEIN, SERUM 6.6 g/dL (6.4-8.2)
[2019-09-18 13:02] LABS: ALBUMIN 1.4 g/dL (3.4-5.0); CREATININE SERUM 4.2 mg/dL (0.7-1.3)
[2019-09-18 13:10] VITALS: BP 124/63
[2019-09-18 17:08] VITALS: BP 127/63
[2019-09-18 21:18] VITALS: BP 117/66
[2019-09-19 06:30] VITALS: BP 128/69
[2019-09-19 07:06] LABS: BASOPHIL % 0.2 % (0-2); PLATELET COUNT 284 x10^3mcL (130-400)
[2019-09-19 07:27] LABS: RED CELL DISTRIBUTION WIDTH 14.8 % (11.5-14.5)
[2019-09-19 07:40] LABS: ALKALINE PHOSPHATASE 90 U/L (46-116); ALT/SGPT 27 U/L (16-63); AST/SGOT 26 U/L (15-37); BILIRUBIN TOTAL 1.16 mg/dL (0.20-1.00); CALCIUM 7.6 mg/dL (8.5-10.1); CARBON DIOXIDE 26.8 mmol/L (21-32); CHLORIDE SERUM 101 mmol/L (98-107); CREATININE SERUM 3.6 mg/dL (0.7-1.3); GLUCOSE SERUM 132 mg/dL (74-106); MAGNESIUM 2.5 mg/dL (1.8-2.4); POTASSIUM SERUM 3.7 mmol/L (3.5-5.1); SODIUM SERUM 136 mmol/L (136-145); TOTAL PROTEIN, SERUM 6.7 g/dL (6.4-8.2)
[2019-09-19 07:53] LABS: ALBUMIN 1.4 g/dL (3.4-5.0)
[2019-09-19 09:05] VITALS: BP 123/62
[2019-09-19 12:11] VITALS: BP 124/76
[2019-09-19 17:11] VITALS: BP 118/60
[2019-09-19 20:43] VITALS: BP 129/60
[2019-09-20 05:39] VITALS: BP 126/62
[2019-09-20 07:43] LABS: BASOPHIL % 0.3 % (0-2); PLATELET COUNT 333 x10^3mcL (130-400)
[2019-09-20 07:44] LABS: RED CELL DISTRIBUTION WIDTH 14.7 % (11.5-14.5)
[2019-09-20 08:35] LABS: ALKALINE PHOSPHATASE 74 U/L (46-116); ALT/SGPT 20 U/L (16-63); AST/SGOT 18 U/L (15-37); CALCIUM 7.6 mg/dL (8.5-10.1); CARBON DIOXIDE 24.6 mmol/L (21-32); CHLORIDE SERUM 98 mmol/L (98-107); GLUCOSE SERUM 134 mg/dL (74-106); POTASSIUM SERUM 3.8 mmol/L (3.5-5.1); SODIUM SERUM 131 mmol/L (136-145); TOTAL PROTEIN, SERUM 6.5 g/dL (6.4-8.2)
[2019-09-20 08:49] LABS: ALBUMIN 1.3 g/dL (3.4-5.0)
[2019-09-20 08:51] LABS: CREATININE SERUM 4.7 mg/dL (0.7-1.3)
[2019-09-20 09:06] VITALS: BP 119/61
[2019-09-20 12:53] VITALS: BP 122/68
[2019-09-20 17:53] VITALS: BP 115/71
[2019-09-20 21:25] VITALS: BP 121/57
[2019-09-21 05:32] VITALS: BP 112/61
[2019-09-21 07:15] LABS: BASOPHIL % 0.4 % (0-2); PLATELET COUNT 365 x10^3mcL (130-400)
[2019-09-21 07:27] LABS: RED CELL DISTRIBUTION WIDTH 15.1 % (11.5-14.5)
[2019-09-21 07:31] VITALS: BP 107/61
[2019-09-21 07:51] LABS: ALKALINE PHOSPHATASE 71 U/L (46-116); AST/SGOT 23 U/L (15-37); BILIRUBIN TOTAL 1.21 mg/dL (0.20-1.00); CALCIUM 7.6 mg/dL (8.5-10.1); CARBON DIOXIDE 26.4 mmol/L (21-32); CHLORIDE SERUM 99 mmol/L (98-107); CREATININE SERUM 3.7 mg/dL (0.7-1.3); GLUCOSE SERUM 125 mg/dL (74-106); MAGNESIUM 2.2 mg/dL (1.8-2.4); POTASSIUM SERUM 3.4 mmol/L (3.5-5.1); SODIUM SERUM 135 mmol/L (136-145); TOTAL PROTEIN, SERUM 6.6 g/dL (6.4-8.2)
[2019-09-21 07:56] LABS: ALBUMIN 1.3 g/dL (3.4-5.0)
[2019-09-21 09:06] LABS: ALT/SGPT 18 U/L (16-63)
[2019-09-21 12:48] VITALS: BP 117/70
[2019-09-21 16:36] VITALS: BP 115/64
[2019-09-21 21:48] VITALS: BP 94/58
[2019-09-21 22:00] VITALS: BP 108/61
[2019-09-22 06:06] VITALS: BP 121/65
[2019-09-22 06:56] LABS: BASOPHIL % 0.4 % (0-2); PLATELET COUNT 385 x10^3mcL (130-400)
[2019-09-22 07:21] LABS: ALKALINE PHOSPHATASE 65 U/L (46-116); ALT/SGPT 17 U/L (16-63); AST/SGOT 21 U/L (15-37); BILIRUBIN TOTAL 0.96 mg/dL (0.20-1.00); CALCIUM 7.7 mg/dL (8.5-10.1); CHLORIDE SERUM 99 mmol/L (98-107); GLUCOSE SERUM 111 mg/dL (74-106); POTASSIUM SERUM 3.4 mmol/L (3.5-5.1); SODIUM SERUM 134 mmol/L (136-145); TOTAL PROTEIN, SERUM 6.4 g/dL (6.4-8.2)
[2019-09-22 07:41] LABS: RED CELL DISTRIBUTION WIDTH 15.1 % (11.5-14.5)
[2019-09-22 07:48] LABS: ALBUMIN 1.3 g/dL (3.4-5.0); CREATININE SERUM 4.9 mg/dL (0.7-1.3)
[2019-09-22 07:49] VITALS: BP 136/79
[2019-09-22 15:42] VITALS: BP 130/77
[2019-09-22 20:16] VITALS: BP 128/63
[2019-09-23 06:01] VITALS: BP 117/61
[2019-09-23 06:07] LABS: BASOPHIL % 0.3 % (0-2)
[2019-09-23 06:12] LABS: PLATELET COUNT 404 x10^3mcL (130-400); RED CELL DISTRIBUTION WIDTH 14.6 % (11.5-14.5)
[2019-09-23 06:22] LABS: CALCIUM 7.3 mg/dL (8.5-10.1); CARBON DIOXIDE 23.7 mmol/L (21-32); CHLORIDE SERUM 102 mmol/L (98-107); GLUCOSE SERUM 112 mg/dL (74-106); POTASSIUM SERUM 3.9 mmol/L (3.5-5.1); SODIUM SERUM 134 mmol/L (136-145)
[2019-09-23 06:23] LABS: CREATININE SERUM 4.2 mg/dL (0.7-1.3)
[2019-09-23 08:10] VITALS: BP 122/70
[2019-09-23 11:29] VITALS: BP 155/74
[2019-09-23 20:43] VITALS: BP 118/57
[2019-09-24 06:04] VITALS: BP 137/63
[2019-09-24 07:10] LABS: BASOPHIL % 0.4 % (0-2); PLATELET COUNT 394 x10^3mcL (130-400)
[2019-09-24 07:18] LABS: CALCIUM 7.7 mg/dL (8.5-10.1); CARBON DIOXIDE 25.1 mmol/L (21-32); CHLORIDE SERUM 98 mmol/L (98-107); GLUCOSE SERUM 101 mg/dL (74-106); SODIUM SERUM 130 mmol/L (136-145)
[2019-09-24 07:23] LABS: CREATININE SERUM 5.1 mg/dL (0.7-1.3)
[2019-09-24 07:29] LABS: RED CELL DISTRIBUTION WIDTH 14.8 % (11.5-14.5)
[2019-09-24 08:23] VITALS: BP 118/68
[2019-09-24 13:46] VITALS: BP 111/67
[2019-09-24 17:19] VITALS: BP 132/66
[2019-09-24 22:10] VITALS: BP 134/46
[2019-09-25 06:09] VITALS: BP 116/65
[2019-09-25 06:55] LABS: CALCIUM 7.6 mg/dL (8.5-10.1); CARBON DIOXIDE 26.6 mmol/L (21-32); CHLORIDE SERUM 101 mmol/L (98-107); CREATININE SERUM 3.8 mg/dL (0.7-1.3); GLUCOSE SERUM 99 mg/dL (74-106); MAGNESIUM 1.8 mg/dL (1.8-2.4); PHOSPHOROUS 4.9 mg/dL (2.5-4.9); POTASSIUM SERUM 3.5 mmol/L (3.5-5.1); SODIUM SERUM 135 mmol/L (136-145)
[2019-09-25 07:28] LABS: BASOPHIL % 0.4 % (0-2); PLATELET COUNT 396 x10^3mcL (130-400)
[2019-09-25 07:54] LABS: RED CELL DISTRIBUTION WIDTH 14.8 % (11.5-14.5)
[2019-09-25 08:30] VITALS: BP 109/51
[2019-09-25 13:00] VITALS: BP 103/54
[2019-09-25 17:17] VITALS: BP 110/53
[2019-09-25 21:58] VITALS: BP 131/65
[2019-09-26 05:36] VITALS: BP 118/63
[2019-09-26 07:19] LABS: BASOPHIL % 0.3 % (0-2); PLATELET COUNT 393 x10^3mcL (130-400)
[2019-09-26] MEDS ORDERED: NEP PO (08:33)
[2019-09-26 08:37] LABS: RED CELL DISTRIBUTION WIDTH 15.1 % (11.5-14.5)
[2019-09-26 08:47] VITALS: BP 110/57
[2019-09-26 08:49] LABS: CALCIUM 7.5 mg/dL (8.5-10.1); CARBON DIOXIDE 23.5 mmol/L (21-32); CHLORIDE SERUM 97 mmol/L (98-107); GLUCOSE SERUM 112 mg/dL (74-106); POTASSIUM SERUM 3.6 mmol/L (3.5-5.1); SODIUM SERUM 131 mmol/L (136-145)
[2019-09-26 08:52] LABS: CREATININE SERUM 5.1 mg/dL (0.7-1.3)
[2019-09-26 12:09] VITALS: BP 116/67
[2019-09-26 16:25] VITALS: BP 128/66
[2019-09-26 19:20] VITALS: BP 116/57
[2019-09-27 05:37] VITALS: BP 130/74
[2019-09-27 07:15] LABS: BASOPHIL % 0.8 % (0-2)
[2019-09-27 07:26] LABS: PLATELET COUNT 455 x10^3mcL (130-400)
[2019-09-27 07:29] LABS: CALCIUM 7.8 mg/dL (8.5-10.1); CARBON DIOXIDE 26.4 mmol/L (21-32); CHLORIDE SERUM 97 mmol/L (98-107); GLUCOSE SERUM 102 mg/dL (74-106); POTASSIUM SERUM 3.4 mmol/L (3.5-5.1); SODIUM SERUM 133 mmol/L (136-145)
[2019-09-27 08:30] VITALS: BP 124/67
[2019-09-27 08:39] LABS: CREATININE SERUM 4.1 mg/dL (0.7-1.3)
[2019-09-27 11:58] VITALS: BP 122/66
[2019-09-27 16:20] VITALS: BP 126/68
[2019-09-27 17:05] VITALS: BP 126/68
== END 2019-09-27 19:00 | DRG 721 ==
LOC: ED 09:55 → DU 15:41 → MU 09-25 22:23
PROVIDERS: Emergency Medicine; Hospitalist; Internal Medicine Nephrology; Internal Medicine Pulmonary Disease; ADMIT Internal Medicine; ATTEND Internal Medicine
PROC: 5A1D70Z Performance of Urinary Filtration, Intermittent, Less than 6 Hours Per Day (ICD-10-PCS; 2019-09-12)
PROC: 5A1D70Z Performance of Urinary Filtration, Intermittent, Less than 6 Hours Per Day (ICD-10-PCS; 2019-09-13)
PROC: 5A1D70Z Performance of Urinary Filtration, Intermittent, Less than 6 Hours Per Day (ICD-10-PCS; 2019-09-15)
PROC: 02PYX3Z Removal of Infusion Device from Great Vessel, External Approach (ICD-10-PCS; 2019-09-16)
PROC: 0JPT3XZ Removal of Tunneled Vascular Access Device from Trunk Subcutaneous Tissue and Fascia, Percutaneous Approach (ICD-10-PCS; 2019-09-16)
PROC: 02HV33Z Insertion of Infusion Device into Superior Vena Cava, Percutaneous Approach (ICD-10-PCS; principal; 2019-09-17)
PROC: B548ZZA Ultrasonography of Superior Vena Cava, Guidance (ICD-10-PCS; 2019-09-17)
PROC: 5A1D70Z Performance of Urinary Filtration, Intermittent, Less than 6 Hours Per Day (ICD-10-PCS; 2019-09-17)
PROC: 5A1D70Z Performance of Urinary Filtration, Intermittent, Less than 6 Hours Per Day (ICD-10-PCS; 2019-09-18)
PROC: 5A1D70Z Performance of Urinary Filtration, Intermittent, Less than 6 Hours Per Day (ICD-10-PCS; 2019-09-20)
PROC: 5A1D70Z Performance of Urinary Filtration, Intermittent, Less than 6 Hours Per Day (ICD-10-PCS; 2019-09-22)
PROC: 5A1D70Z Performance of Urinary Filtration, Intermittent, Less than 6 Hours Per Day (ICD-10-PCS; 2019-09-24)
PROC: 5A1D70Z Performance of Urinary Filtration, Intermittent, Less than 6 Hours Per Day (ICD-10-PCS; 2019-09-26)
DX: T80.211A Bloodstream infection due to central venous catheter, initial encounter (principal); A41.01 Sepsis due to Methicillin susceptible Staphylococcus aureus; G93.41 Metabolic encephalopathy; I67.1 Cerebral aneurysm, nonruptured; N18.6 End stage renal disease; N39.0 Urinary tract infection, site not specified; E87.1 Hypo-osmolality and hyponatremia; Z88.8 Allergy status to other drugs, medicaments and biological substances; Z91.15 Patient's noncompliance with renal dialysis; R65.20 Severe sepsis without septic shock; Y83.8 Other surgical procedures as the cause of abnormal reaction of the patient, or of later complication, without mention of misadventure at the time of the procedure; Y92.89 Other specified places as the place of occurrence of the external cause; Z99.2 Dependence on renal dialysis; D63.1 Anemia in chronic kidney disease; Z20.828 Contact with and (suspected) exposure to other viral communicable diseases; I05.9 Rheumatic mitral valve disease, unspecified
CPT/HCPCS: 36600; 82962; 83880; 92526-GN; 92610-GN; 97110-GP; 97116-GP; 97530-GP; G0378; G0480; J0696; J0885-EC; J1644; J2543; J2997; J3370; J3490; J7030; J7040; J7050; Q0092; Q0163; U0003-CS